=== PATIENT | female | born 1950 | race Hispanic/Latino ===

== ENCOUNTER → 2019-02-04 | Outpatient (CLI) | payer OTHER | END | disposition home or self-care (01) | LOC: RAH 10:00 | PROVIDERS: ATTEND Internal Medicine Cardiovascular Disease | DX: Z01.818 Encounter for other preprocedural examination (principal); I08.1 Rheumatic disorders of both mitral and tricuspid valves; I10 Essential (primary) hypertension | CPT/HCPCS: 93306 ==

== ENCOUNTER 2025-05-23 17:01 | Emergency (ER) | payer MEDICARE, MEDICAID ==
[~2025-05-23] VITALS: Ht 177.8 cm; Wt 54.0 kg
--- NOTE | 2025-05-23 17:43 | EKG ---
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
[2025-05-23 18:35] LABS: IMMATURE GRANULOCYTE ABSOLUTE 0.01 K/uL (0-1); NUCLEATED RED BLOOD CELLS 0.0 % (0.0-0.19); PLATELET COUNT (AUTO) 188 K/uL (130-400); RED BLOOD CELL COUNT(AUTO) 3.00 MIL/uL (4.00-5.50); RED CELL DISTRIBUTION WIDTH 14.5 % (11.0-15.5); WHITE BLOOD COUNT (AUTO) 5.5 K/uL (4.8-10.8)
--- NOTE | 2025-05-23 18:42 | HMCIMG ---
EXAM: CT Head Without IV contrast. CLINICAL HISTORY: Presents with dizziness and fall. TECHNIQUE: Axial computed tomography images of the head/brain without intravenous contrast. COMPARISON: None provided. FINDINGS: BRAIN: Mild to moderate bilateral cerebral and cerebellar neuroparenchymal atrophy. Mild to moderate chronic small vessel ischemic changes involving bilateral periventricular and supraventricular white matter. Atherosclerotic intimal wall calcifications involving the V4 segments of bilateral vertebral arteries. Bilateral basal ganglia calcifications. Chronic lacunar infarct in the left insular cortex. No evidence of acute hemorrhage. No mass lesion. No CT evidence for acute territorial infarct. No midline shift or extra-axial collections. VENTRICLES: No hydrocephalus. ORBITS: The orbits are unremarkable. SINUSES AND MASTOIDS: The paranasal sinuses and mastoid air cells are clear. BONES: No fracture. SOFT TISSUES: Unremarkable. IMPRESSION: No evidence of acute hemorrhage. No mass lesion. No CT evidence for acute territorial infarct. Suggested MRI brain for further evaluation, if clinically indicated. Mild to moderate bilateral cerebral and cerebellar neuroparenchymal atrophy. Mild to moderate chronic small vessel ischemic changes involving bilateral periventricular and supraventricular white matter. Chronic lacunar infarct in the left insular cortex. /[place]
--- NOTE | 2025-05-23 18:43 | HMCIMG ---
EXAM: CR Chest, 1 View. CLINICAL HISTORY: dizzy COMPARISON: None provided. FINDINGS: LUNGS: The lungs show no infiltrate or other acute finding. PLEURAL SPACES: No evidence of pleural effusion or pneumothorax. MEDIASTINUM: Mild to moderate cardiomegaly. Pulmonary vasculature and interstitial markings are within normal limits. BONES: No aggressive appearing osseous lesion seen. IMPRESSION: 1. No acute cardiopulmonary findings. 2. Mild to moderate cardiomegaly. /[place]
[2025-05-23 18:50] LABS: GLOMERULAR FILTR. RATE CALC 5.0 mL/min (>90); GLUCOSE,RANDOM 92.0 mg/dL (70-105); SODIUM SERUM 142.0 mmol/L (136-145); UREA NITROGEN, BLOOD 64.0 mg/dL (7-18)
[2025-05-23 18:55] LABS: CREATININE 8.1 mg/dL (0.5-1.0)
[2025-05-23 19:00] VITALS: BP 154/76; PULSE 76; RESP 18; TEMP 98.1; O2SAT 98
== END 2025-05-23 20:59 | disposition home or self-care (01) ==
LOC: EDH 17:01
DX: R42 Dizziness and giddiness (principal); H61.23 Impacted cerumen, bilateral; I13.11 Hypertensive heart and chronic kidney disease without heart failure, with stage 5 chronic kidney disease, or end stage renal disease; E11.22 Type 2 diabetes mellitus with diabetic chronic kidney disease; N18.6 End stage renal disease; J32.9 Chronic sinusitis, unspecified; E78.00 Pure hypercholesterolemia, unspecified; Z86.73 Personal history of transient ischemic attack (TIA), and cerebral infarction without residual deficits; Z88.5 Allergy status to narcotic agent; Z90.710 Acquired absence of both cervix and uterus; Z99.2 Dependence on renal dialysis
CPT/HCPCS: 99285; 70450; 71045; 69209; 84484; 80048; 85025; 36415; 96372; 93005; J1100